=== PATIENT | female | born 1950 | race Two or more races ===

== ENCOUNTER → 2017-07-16 | Outpatient (CLI) | payer OTHER, MEDICAID | LOC: CIMAGING 13:48 | PROVIDERS: ATTEND Family Medicine | DX: Z12.31 Encounter for screening mammogram for malignant neoplasm of breast (principal) | CPT/HCPCS: G0202 ==

== ENCOUNTER 2017-09-16 12:43 | Emergency (ER) | payer OTHER, MEDICAID ==
[2017-09-16 12:56] VITALS: RESP 16; TEMP 98.2
--- NOTE | 2017-09-16 13:10 | EDPHY ---
H & P Time Seen by Provider: 09/16/17 12:55 HPI/ROS: This patient slipped on 2 stairs going into dark basement 2 days prior to arrival injuring her right foot and ankle. She explains that when she slipped her right foot tucked back behind her and then her buttock landed on the posterior foot causing a pop sound and pain. Since that time she has had swelling to the dorsal foot and circumferential around the ankle associated with ecchymosis. Due to the ongoing symptoms without improvement she came in for further evaluation by private vehicle. She states the pain is mild in intensity but admits that she is quite stoic and usually tolerates pain very well. She is able to partially weight bear since the injury. ROS: Musculoskeletal: She denies any other injuries from the fall. No neck or back pain Neuro: No headache or head injury. no numbness or tingling the affected lower extremity Cardiovascular: No complaints 5 point ROS is otherwise negative. Smoking Status: Never smoked Physical Exam: Physical Exam Vital signs are normal. General: No acute distress HEENT: Atraumatic. Eyes: Pupils equal and react to light. Extraocular motions are intact. Lungs: No respiratory distress. Cardiac: Brisk capillary refill is intact throughout. Pulses are 2+ and symmetric in the affected extremity. Skin: No rash or pallor. Extremities: Atraumatic and normal except for right lower extremity Right lower extremity: Patient has circumferential ankle swelling and mild ecchymosis to moderate ecchymosis with lateral malleolar tenderness also tenderness inferior lateral malleolus. Minimal medial tenderness no Achilles tenderness. Her foot exam right is notable for dorsal ecchymosis and mild tenderness to the midfoot with no metatarsal tenderness or swelling. No laxity with anterior drawer of her ankle Neuro: Alert and oriented x3 with no sensorimotor deficits. Differential diagnosis: Next foot fracture versus sprain versus contusion, ankle fracture versus sprain Constitutional: Initial Vital Signs Temperature (C) 36.8 C 09/16/17 12:45 Heart Rate 75 09/16/17 12:45 Respiratory Rate 16 09/16/17 12:45 Blood Pressure 170/87 H 09/16/17 12:45 O2 Sat (%) 96 09/16/17 12:45 O2 Delivery Mode Room Air Allergies/Adverse Reactions: acetaminophen [From Tylenol] Allergy (Verified 09/16/17 13:05) Pt reports elevated BP cephalexin [From Keflex] Allergy (Verified 09/16/17 13:05) Pt reports rash diphtheria,pertussis (acellular),te [From Boostrix Tdap] Allergy (Verified 09/16 13:05) Pt reports swelling erythromycin lactobionate [From Erythrocin] Allergy (Verified 09/16/17 13:05) Pt reports rash ibuprofen [From Advil] Allergy (Verified 09/16/17 13:05) pt reports increased HR Penicillins Allergy (Verified 09/16/17 13:05) Pt reports anaphylasxis Sulfa (Sulfonamide Antibiotics) Allergy (Verified 09/16/17 13:05) Pt states she does not remember felipe Allergy (Uncoded 09/16/17 13:05) Pt reports "turning black" Home Medications: Medication Instructions Recorded Levothyroxine [Synthroid 100 mcg 08/21/15 (RX)] Progesterone 12/28/15 Methadone HCl 09/16/17 MDM/Departure - MDM Imaging Results: Imaging Impressions Foot X-Ray 09/16/17 13:03 Impression: Mild degenerative change of the first metatarsophalangeal joint. 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 Accessory ossification in the posteromedial navicular. No definite acute fracture. Ankle X-Ray 09/16/17 13:04 Impression: Possible subtle avulsion fracture or enthesopathy at the peroneal brevis insertion of the base of the fifth metatarsal. Soft tissue swelling over the lateral malleolus with no other findings for acute fracture. Imaging: Discussed imaging studies w/ orthopedically impaired teacher Radiologist ED Course/Re-evaluation: Due to the presence of both the foot sprain and ankle sprain, patient is placed in a walker boot by our tech with my supervision. Patient is neurovascularly intact post splint application. I counseled patient regarding her injuries and explained gentle stretches and strengthening exercises for ankle sprain. Discussion: Foot and ankle sprain without laxity. Will provide orthopedic follow-up if patient is not improving with treatment plan over the next week. - Depart Disposition: Home, Routine, Self-Care Clinical Impression: Ankle sprain Qualifiers: Encounter type: initial encounter Involved ligament of ankle: tibiofibular ligament Laterality: right Qualified Code(s): S93.431A - Sprain of tibiofibular ligament of right ankle, initial encounter Sprain of foot, right Qualifiers: Encounter type: initial encounter Qualified Code(s): S93.601A - Unspecified sprain of right foot, initial encounter Condition: Good Instructions: Ankle Sprain (ED), Foot Sprain (ED) Additional Instructions: Diagnosis: Foot sprain 2. Ankle sprain Plan: Ice 20 minutes at a time to 3 times a day for the next day or 2. Tylenol and ibuprofen if needed for discomfort Splint whenever up and about until symptoms resolved Use crutches initially until it no longer hurts to bear weight. Then start your ankle rehabilitation exercises to include "the alphabet", gentle ankle stretches in the 4 directions, and then manual resistance strengthening exercises in the 4 directions daily for the next several months. Call the swine extension field specialist listed below to arrange a followup appointment if you' re not improving with the treatment plan over the next week or so. Referrals: Meenu Silva MD [Primary Care Provider] - As per Instructions Shy Smith DPM [Doctor of Podiatric Medicine] - As per Instructions
[2017-09-16 13:57] VITALS: BP 170/81; PULSE 67; O2SAT 97
== END 2017-09-16 13:54 | disposition home or self-care (01) ==
LOC: CED 12:43
DX: S93.431A Sprain of tibiofibular ligament of right ankle, initial encounter (principal); S93.601A Unspecified sprain of right foot, initial encounter; W10.9XXA Fall (on) (from) unspecified stairs and steps, initial encounter
CPT/HCPCS: 73610; 73630; 99283; L4386

== ENCOUNTER → 2018-07-30 | Outpatient (CLI) | payer OTHER, MEDICAID | LOC: CIMAGING 08:20 | PROVIDERS: ATTEND Family Medicine | DX: Z12.31 Encounter for screening mammogram for malignant neoplasm of breast (principal); R92.8 Other abnormal and inconclusive findings on diagnostic imaging of breast ==

== ENCOUNTER → 2018-09-01 | Outpatient (CLI) | payer OTHER, MEDICAID | LOC: BMCIMAGING 10:14 | PROVIDERS: ATTEND Family Medicine | DX: Z13.820 Encounter for screening for osteoporosis (principal); M85.89 Other specified disorders of bone density and structure, multiple sites; N60.01 Solitary cyst of right breast; N60.02 Solitary cyst of left breast ==